=== PATIENT | female | born 1980 | race African-American/Black ===

== ENCOUNTER 2019-02-12 06:47 | Emergency (ER) | payer OTHER ==
--- NOTE | 2019-02-12 07:59 | CT ---
CT Brain WO Con: 02/12/2019 7:17 AM CLINICAL HISTORY: Fall with head injury and pain. COMPARISON: None. FINDINGS: Hemorrhage: None. Ventricular system: Normal in size and morphology for the patient's age. Cerebral parenchyma: Normal Midline shift: None. Mass: No mass effect. Calvarium: Normal. Visualized Paranasal sinuses: Clear. IMPRESSION: No acute intracranial abnormalities.
--- NOTE | 2019-02-12 08:10 | RAD ---
XR Lumbar Spine 2 Or 3 View: 02/12/2019 7:18 AM CLINICAL INDICATION: Fall with back pain COMPARISON: None. FINDINGS: Fracture:No fracture. Arthropathy:None of significance. Incidental findings:Metallic clips overlie the right upper abdomen. Phlebolith formation is seen at t he pelvis. IMPRESSION: 1. No acute osseous abnormality.
--- NOTE | 2019-02-12 08:14 | CT ---
CT CERVICAL SPINE WITHOUT CONTRAST: HISTORY: The patient was coming out of a freezer at a restaurant, flat on his back. Posttraumatic pain. COMPARISON: None. FINDINGS: No craniocervical dissociation. Appropriate alignment of the lateral masses of C1 and C2. Intact od ontoid process. Soft tissue neck structures, upper mediastinum, and lung apices are grossly unremarkable. There are multilevel upper normal soft tissue neck lymph nodes. [employer] enlarged left level V lymph nod e measures 1.5 x 0.8 cm. There are varying degrees of central canal stenosis and neural foraminal narrowing on the basis of de generative change. Cervical spine vertebral body height is maintained. There is no fracture. There is straightening of the normal cervical lordosis which may be due to patient position, muscle spasm or cervical collar. If there is concern for ligamentous injury, MRI should be considered. IMPRESSION: 1. No cervical spine fracture. 2. Multiple mildly enlarged soft tissue neck lymph nodes. Correlate for infectious, inflammatory ne oplastic process. 3. Straightening of normal cervical lordosis as detailed above. POS: [facility]
[2019-02-12] MEDS ORDERED: Ibuprofen 800 MG TAB ONE (08:30)
== END 2019-02-12 08:54 | disposition home or self-care (01) ==
LOC: ERS 06:47
DX: S30.0XXA Contusion of lower back and pelvis, initial encounter (principal); J45.909 Unspecified asthma, uncomplicated; W19.XXXA Unspecified fall, initial encounter
CPT/HCPCS: 70450; 72100; 72125